=== PATIENT | male | born 1965 | race Caucasian/White ===

== ENCOUNTER 2017-03-03 20:01 | Inpatient (IN) | payer OTHER, MEDICAID ==
[~2017-03-03] VITALS: Ht 177.8 cm; Wt 64.9 kg
--- NOTE | ~2017-03-03 | O ---
[place], [place] OPERATIVE NOTE NAME: NATTY VERDUZCO UNIT #: [id number] ROOM: 501 DO[facility] BIRTH[facility]: [birth year] DOS: GASTROENDOSCOPIC REPORT INDICATION: The patient has presented with chief complaint of postprandial emesis. The patient has been taking large volumes of nonsteroidal anti-inflammatory for nonspecific pain. The patient had to come to the Emergency Room to be assessed and was found to have liver function tests and lipase which is normal. CBC was showing white blood cell of 17,000, H and H of 13 and 39, platelets within normal limits. CT scan of the abdomen, there is extensive abdominal mesenteric edema predominantly in the right abdomen, nonspecific finding, but this could indicate panniculitis or underlying infectious inflammatory process; therefore, the patient has been started on Zosyn and has been started on Flagyl IV. Labs on records periodically were reviewed. Hemoglobin A1c has been 10.6. His H and H was reassessed. White blood cell dropped to 14.4 with H and H of 13 and 39, lactic acid 1.1. C-reactive protein surprisingly was within normal limits. Ultrasound of the abdomen was obtained, diffuse hepatic steatosis. A trace amount of ascites was identified. He has heavy history of alcoholism and heavy history of nicotine use. FAMILY HISTORY: Noncontributory. ALLERGIES: No known medication. PAST MEDICAL HISTORY: Diabetes, CVA and anemia. PAST SURGICAL HISTORY: Traumatic rupture of the spleen. SOCIAL HISTORY: Heavy smoker and alcohol consumer heavily. ALLERGIES: No known medication. MEDICATIONS AT HOME: Reviewed, glipizide and metformin; however, he remains very noncompliant patient due to his hemoglobin A1c greater than 10 mL. PROCEDURE: Today's procedure part of investigation is panendoscopy plus biopsy with expectation of finding a duodenal ulcer or penetrating duodenal ulcer with edema of the small bowel on the right side of the abdomen with a history of avid intake of ibuprofen, massive numbers. REPORT: After putting the patient in the left lateral position and after application of lubricant to the scope, the scope was introduced; thereafter, under direct visualization, advanced through the length of esophagus without difficulty. Gastric pouch was entered. Gastritis was seen. Duodenal bulb, second and third part within normal limits. There was no ulceration, no obstruction, no lesions, biopsy obtained. The patient extubated and tolerated the procedure well. IMPRESSION: A 1-cm hiatal hernia, mild gastritis, status post biopsy. [place], [place] OPERATIVE NOTE NAME: NATTY VERDUZCO UNIT #: [id number] ROOM: [facility] [place] DOCTOR: HANNA SIDDIQI MD BIRTHDATE: [birth year] PLAN AND DISCUSSION: We still remain ambiguous regarding intense edema of possible panniculitis of the abdomen and adversely influencing the small bowel and right upper anatomy. For the same reason, we are going to keep him on Flagyl and Zosyn and we are going to only allow him to have clear liquid. We are going to keep him on PPI, Protonix 40 mg daily. We are going to repeat the CT scan of the abdomen Tuesday and reevaluate to see if the inflammatory process reduced and during this time, we are going to remain on clear liquid. His lactic acid has been negative. We are going to reassess lactic acid again on Tuesday to assure if this initial lactic acid that we had is before his and so far we are going to treat for panniculitis of the abdomen. Workup in progress. I thank you very much indeed for your kind referral. HANNA SIDDIQI MD CM:OPRECORD:OPERATIVE NOTE 34 14 HANNA SDIDIQI MD 03/04/172313 interface
[2017-03-03 20:04] VITALS: BP 151/73
[2017-03-03 20:28] LABS: HEMATOCRIT 39.6 % (42.0-52.0); HEMOGLOBIN 13.7 g/dl (14.0-18.0); MEAN CELL VOLUME 96.6 fl (80.0-94.0); MEAN CORPUSCULAR HGB 33.4 pg (27.0-31.0); MEAN CORPUSCULAR HGB CONC 34.6 g/dl (33.0-37.0); MEAN PLATELET VOLUME 10.6 fl (9.6-12.3); PLATELET COUNT AUTOMATED 334 10*3/uL (130-400); RED CELL DISTRI WIDTH 12.7 % (0-14.5); WHITE BLOOD COUNT 17.6 10*3/uL (4.8-10.8)
[2017-03-03 20:46] LABS: ALBUMIN 3.6 gm/dl (3.1-4.5); ALKALINE PHOSPHATASE 59 U/L (45-117); BUN 19 mg/dl (7-24); CHLORIDE 105 mmol/L (98-107); CREATININE 0.81 mg/dL (0.70-1.30); LIPASE 116 U/L (73-393); POTASSIUM 4.5 mmol/L (3.5-5.1); SGOT/AST 13 IU/L (3-35); SGPT/ALT 31 U/L (12-78); SODIUM 139 mmol/L (136-145); TOTAL PROTEIN 6.8 gm/dL (6.4-8.2)
[2017-03-03 20:51] LABS: TOTAL CELLS COUNTED 100 #CELLS
[2017-03-03 20:52] LABS: BURR CELLS FEW; PLATELET SUFFICIENCY NORMAL (NORMAL)
[2017-03-03 21:19] LABS: BILIRUBIN NEGATIVE (NEGATIVE); BLOOD NEGATIVE (NEGATIVE); CLARITY CLEAR (CLEAR); COLOR YELLOW (YELLOW); GLUCOSE 3+ (NEGATIVE); KETONE TRACE (NEGATIVE); LEUKO ESTERASE NEGATIVE (NEGATIVE); NITRITE NEGATIVE (NEGATIVE); SPECIFIC GRAVITY 1.015 (1.005-1.030)
[2017-03-03 21:26] LABS: BACTERIA 2+; EPITHELIAL CELLS 0-2; RBC 0-2 rbc/hpf (0-2); WBC 0-2 wbc/hpf (0-5)
[2017-03-04] VITALS (8 sets, daily range): BP systolic 104–143; BP diastolic 53–75
--- NOTE | 2017-03-04 01:25 | NUR ---
PT REQUESTING SOMETHING TO EAT, NOTIFIED HOSPITALIST AND NEW ORDERS RECEIVED.
--- NOTE | 2017-03-04 03:39 | NUR ---
C/O ABDOMINAL PAIN, RATES THE PAIN 7/10 ON THE PAIN SCALE. MEDICATED WITH NORCO.
--- NOTE | 2017-03-04 04:30 | NUR ---
PT DENIES ANY ABDOMINAL PAIN AT THIS TIME, NORCO EFFECTIVE.
[2017-03-04 06:03] LABS: HEMATOCRIT 39.3 % (42.0-52.0); HEMOGLOBIN 13.8 g/dl (14.0-18.0); MEAN CELL VOLUME 96.8 fl (80.0-94.0); MEAN CORPUSCULAR HGB CONC 35.1 g/dl (33.0-37.0); MEAN PLATELET VOLUME 10.8 fl (9.6-12.3); PLATELET COUNT AUTOMATED 307 10*3/uL (130-400); RED BLOOD COUNT 4.06 10*6/uL (4.50-5.90); RED CELL DISTRI WIDTH 12.6 % (0-14.5); WHITE BLOOD COUNT 14.4 10*3/uL (4.8-10.8)
[2017-03-04 06:13] LABS: ALBUMIN 3.2 gm/dl (3.1-4.5); BUN 14 mg/dl (7-24); CHLORIDE 105 mmol/L (98-107); CHOLESTEROL 141 mg/dL (<200); CREATININE 0.72 mg/dL (0.70-1.30); MAGNESIUM 2.1 mg/dL (1.5-2.1); PHOSPHOROUS 2.8 mg/dL (2.5-4.9); SGOT/AST 10 IU/L (3-35); SGPT/ALT 26 U/L (12-78); SODIUM 138 mmol/L (136-145); TOTAL PROTEIN 6.2 gm/dL (6.4-8.2); TRIGLYCERIDES 46 mg/dl (<150); VLDL CHOLESTEROL 9 mg/dL (6-40)
--- NOTE | 2017-03-04 06:18 | NUR ---
PT STATES HIS PAIN IS COMING BACK, NORCO WAS EFFECTIVE FOR PAIN. MEDICATED WITH 4MG MORPHINE SLOW PUSH IV PER PHYSICIAN ORDERS.
[2017-03-04 06:19] LABS: ALKALINE PHOSPHATASE 57 U/L (45-117); FREE T4 0.86 ng/dl (0.76-1.46); HDL CHOLESTEROL 50 mg/dl (40-60); LDL CHOLESTEROL 82 mg/dL (9-159)
[2017-03-04 06:22] LABS: ACT PARTIAL THROMBO TIME 25.2 SECONDS (20.8-31.5)
--- NOTE | 2017-03-04 06:51 | NUR ---
PT DENIES ANY ABD PAIN AT THIS TIME, MORPHINE EFFECTIVE.
[2017-03-04 07:10] LABS: VITAMIN D, 25-HYDROXY 30.1 ng/mL (30-100)
[2017-03-04 07:32] LABS: PLATELET SUFFICIENCY NORMAL (NORMAL); TOTAL CELLS COUNTED 100 #CELLS
[2017-03-04 07:33] LABS: BURR CELLS MODERATE
[2017-03-04 07:34] LABS: HOWELL-JOLLY BODIES FEW; SPHEROCYTES FEW; TARGET CELLS FEW
--- NOTE | 2017-03-04 07:34 | NUR ---
PATIENT REPORTS PAIN LEVEL OF 3-4 ON RIGHT SIDE OF ABDOMRN BELOW RIB CAGE THAT RADIATES TO UMBILICUS.
[2017-03-04] MEDS ORDERED: METFORMIN750 MG PO (10:00)
[2017-03-04] MEDS ORDERED: GLIPIZIDE ER10 M1 PO (10:00)
--- NOTE | 2017-03-04 10:50 | NUR ---
UNABLE TO REACH DR. SIDDIQI VIA CELL PHONE FOR CONSULT, LEFT VOICE MESSAGE. SPOKE TO FAUSTO DENISE IN SURGERY WHO STATES THAT RESIDENTS WILL CONTACT DEVANG BAEZ.
--- NOTE | 2017-03-04 11:37 | NUR ---
DR. SIDDIQI RETURNED CALL FOR CONSULT. SEE NEW ORDERS.
--- NOTE | 2017-03-04 12:18 | NUR ---
DR. SIDDIQI CONTACTED FOR MEDICATION CLARITY, SEE NEW ORDERS.
--- NOTE | 2017-03-04 14:49 | NUR ---
TO OR VIA BED, CONDITION STABLE.
--- NOTE | 2017-03-04 19:19 | NUR ---
PT. STILL IN SURGERY AT THIS TIME.
[2017-03-05] VITALS: BP 98/46
--- NOTE | 2017-03-05 06:23 | NUR ---
PATIENT MEDICATED WITH ATIVAN FOR ANXIETY FROM NOT SMOKING AT 2137 WITH EFFECTIVE RESULTS NOTED. PATIENT SLEPT WELL ALL NIGHT. NO SIGNS OR SYMPTOMS OF DISTRESS NOTED. WILL CONTINUE TO MONITOR. CALL LIGHT IN REACH.
[2017-03-05 08:30] VITALS: BP 108/53
[2017-03-05 12:26] VITALS: BP 111/62
[2017-03-05] MEDS ORDERED: FLAGYL500 MG PO (14:22)
[2017-03-05] MEDS ORDERED: METFORMIN750 MG PO (14:24)
[2017-03-05] MEDS ORDERED: PROTONIX40 MG PO (14:24)
[2017-03-05] MEDS ORDERED: GLIPIZIDE ER10 M1 PO (14:24)
[2017-03-05] MEDS ORDERED: Synthroid,Levo25 MCG PO (14:24)
[2017-03-05] MEDS ORDERED: ASPIRIN81 M1 PO (14:24)
[2017-03-05] MEDS ORDERED: CIPRO500 MG PO (14:25)
--- NOTE | 2017-03-05 15:58 | NUR ---
MEDICATED WITH PRN PO TYLENOL FOR CHRONIC BRONCHITIS-RELATED PAIN.
[2017-03-05 16:00] VITALS: BP 107/58
--- NOTE | 2017-03-05 17:53 | NUR ---
Discharge instructions reviewed with patient. Patient receptive and verbalizes understanding. Follow-up care arranged. Written instructions given to patient. 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 LORENZO SOLER
--- NOTE | 2017-03-05 17:56 | NUR ---
PER [facility] SECURITY STAFF, PATIENT WILL BE PICKED UP.
--- NOTE | 2017-03-05 17:58 | NUR ---
PATIENT DISCHARGED TO [facility], AMBULATORY, FOR TRANSPORT HOME BY [facility] STAFF VEHICLE TO HIS HOTEL/BOARDING.
== END 2017-03-05 17:58 | disposition home or self-care (01) | DRG 392 ==
LOC: ED 20:01 → EDHOLD 23:48 → 5E 23:48
PROVIDERS: Hospitalist; Nurse Practitioner Family; Student in an Organized Health Care Education/Training Program; ADMIT Internal Medicine
PROC: 0DB68ZX Excision of Stomach, Via Natural or Artificial Opening Endoscopic, Diagnostic (ICD-10-PCS; principal; 2017-03-04)
DX: K29.00 Acute gastritis without bleeding (principal); Q89.01 Asplenia (congenital); E11.65 Type 2 diabetes mellitus with hyperglycemia; D53.9 Nutritional anemia, unspecified; R00.1 Bradycardia, unspecified